=== PATIENT | male | born 1945 | race Caucasian/White ===

== ENCOUNTER 2020-03-11 14:16 | Outpatient (CLI) | payer MEDICARE, SELFPAY ==
--- NOTE | ~2020-03-11 | CT_ITS ---
EXAMINATION: CTA chest DATE: 03/11/2020 14:43 INDICATION: Possible subclavian artery stenosis, abnormal ASHANTI TECHNIQUE: Computed tomographic angiography (CTA) of the chest was performed with 100 mL Omnipque-350 intravenous contrast. Maximum intensity projection 3D-reconstructions of the aorta and other arterie s were constructed by the technologist on a separate workstation. The dose-length product (DLP) was 6 52.80 mGy-cm. Automated exposure control and iterative reconstruction technique were employed. COMPARISON: 06/08/2018 FINDINGS: There is severe stenosis with near occlusion of the left subclavian artery involving a 12 m m length segment 15 mm from its origin. The left vertebral artery arises directly from aortic arch. T he right subclavian artery, brachiocephalic trunk, and internal carotid arteries appear normal. Calci fied coronary artery atherosclerosis is noted. There is severe emphysema. Scattered areas of atelecta sis are again noted. Calcified pulmonary nodules and calcified mediastinal lymph nodes are consistent with old granulomatous disease. There is no pleural effusion or pneumothorax. No pathologically enla rged thoracic lymph nodes are identified. The heart size is normal. Healed right-sided rib fractures are noted. Cysts of the liver measure up to 8 mm. Punctate calcifications of the liver and spleen are consistent with old granulomatous disease. IMPRESSION: 1. 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 2. Severe emphysema. Reviewed, dictated and finalized at location A. PATIONAL HEALTH NURSE SUPERVISOR IMPRESSION: 1. Severe stenosis involving a short segment of the proximal left subclavian ar elijah. 2. Severe emphysema.
== END 2020-03-11 14:17 | disposition home or self-care (01) ==
LOC: ANHIMG 14:21
PROVIDERS: PCP Internal Medicine; Visit Provider Internal Medicine
DX: R68.89 Other general symptoms and signs (principal); J43.9 Emphysema, unspecified
CPT/HCPCS: 71275; Q9967

== ENCOUNTER 2020-07-17 17:53 | Inpatient (IN) | payer MEDICARE, SELFPAY ==
[2020-07-17] VITALS (30 sets, daily range): BP systolic 120–165; BP diastolic 68–105; PULSE 76–114; RESP 17–30; TEMP 37–37.1; O2SAT 90–94
--- NOTE | ~2020-07-17 | XR_ITS ---
XR chest 2V 07/19/2020 08:15 Indication: Follow-up pneumonia Procedure: AP and lateral views of the chest Comparison: Comparison to multiple prior studies sequentially, with oldest reviewed study dated 05/06. Findings: Bibasilar infiltrates. Heart size normal. There are healed right rib fractures. The lungs a re hyperinflated which is consistent with, but not diagnostic of chronic obstructive pulmonary diseas e. No pneumothorax. Impression: 1: Significant improvement of bilateral airspace disease with persistent bibasilar infiltrates which may represent resolving edema and/or atelectasis. Reviewed, dictated and finalized at location A. Impression: 1: Significant improvement of bilateral airspace disease with persistent bibasi lar infiltrates which may represent resolving edema and/or atelectasis.
--- NOTE | ~2020-07-17 | XR_ITS ---
EXAMINATION: XR chest 1V portable DATE: 07/17/2020 18:43 INDICATION: Shortness of breath. TECHNIQUE: A single frontal view of the chest was obtained on 2 radiographs. COMPARISON: Chest single view 06/07/2018, chest CT 03/11/2020 FINDINGS: There are airspace opacities in the lower lung zones, right worse than left. A calcified le ft lung nodule and calcified paraesophageal lymph node are consistent with old granulomatous disease. No pleural effusion or pneumothorax. The heart size is normal. There are multiple old healed right r ib fractures. IMPRESSION: 1. Airspace opacities in the lower lung zones, right worse than left, consistent with atelectasis beth lorene pneumonia. Reviewed, dictated and finalized at location A. IMPRESSION: 1. Airspace opacities in the lower lung zones, right worse than left, consisten t with atelectasis versus pneumonia.
--- NOTE | ~2020-07-17 | CT_ITS ---
EXAMINATION: CTA chest PE protocol DATE: 07/17/2020 20:24 INDICATION: Shortness of breath and cough. TECHNIQUE: Computed tomography angiography (CTA) of the chest was performed with 100 mL Omnipaque-350 intravenous contrast timed to evaluate the pulmonary arteries. Coronal maximum intensity projection 3D-reconstructions were created by the technologist. Automated exposure control and iterative reconst ruction technique were employed. The dose-length product was 566.87 mGy-cm. COMPARISON: Chest CT 03/11/2020 FINDINGS: There is scarring at the lung apices. There is moderate emphysema. There are patchy airspac e and groundglass opacities in right lower lobe, consistent with pneumonia. There is mild atelectasis in right middle lobe and left lower lobe. A calcified left lower lobe nodule and calcified mediastin al lymph nodes are consistent with old granulomatous disease. No pleural effusion. There is severe st enosis of proximal left subclavian artery. Because the left vertebral artery arises from aortic arch, this would not cause subclavian steal. The heart size is normal. No pericardial effusion. There are coronary artery calcifications. There is no pulmonary embolus. Calcifications in the liver and spleen are consistent with old granulomatous disease. There are cysts in the liver measuring up to 11 mm. T here is mild thoracic spondylosis. IMPRESSION: 1. No pulmonary embolus. 2. Right lower lobe pneumonia. 3. Moderate emphysema. 4. Severe stenosis of proximal left subclavian artery. Reviewed, dictated and finalized at location A.
--- NOTE | ~2020-07-17 | XR_ITS ---
XR chest 2V DATE: 07/20/2020 13:43 INDICATION: Recent pneumonia. Congestive heart failure. Smoker. COPD. TECHNIQUE: PA and lateral views COMPARISON: 07/19/2020 AP and lateral chest 07/17/2020 CT pulmonary scan 07/17/2020 portable AP chest FINDINGS: Minimal atelectasis or scarring at the lung bases. The lungs are otherwise clear. No pleura l effusion or pulmonary vascular congestion or pneumothorax. Heart size is within normal range. Is aortic calcification and unfolding. No hilar or mediastinal enl argement. Bilateral apical scarring. Multiple healed old right rib fracture deformities. IMPRESSION: Minimal atelectasis or scarring at the lung bases Reviewed, dictated and finalized at location A.
--- NOTE | 2020-07-17 17:56 | ECG_ITS ---
Measurements Intervals [place] Rate: 113 P: 88 MN: 174 QRS: 32 QRSD: 97 T: 76 QT: 314 QTc: 432 Interpretive Statements SINUS TACHYCARDIA VENTRICULAR PREMATURE COMPLEXES ABNORMAL ECG Electronically Signed On 07-17-2020 20:16:13 CDT by Walter Dexter D.O.
[2020-07-17 18:28] LABS: Alveolar/Arterial O2 Gradient 102.1 mmHg; Base Excess ABG 1.7 mEq/l (+/-2.0); Device NASAL CANNULA; Fractional Inspired Oxygen 28 %; HCO3 ABG 25.1 mEq/l (22.0-26.0); Modified Allen's Test Pass; Oxygen Content ABG 18.7 %vol (16.0-22.0); Oxygen Saturation ABG 90.6 % (95.0-100.0); Oxyhemoglobin 88.5 % THb (90.0-100.0); PCO2 ABG 35.9 mmHg (35.0-45.0); PO2 ABG 55.2 mmHg (80.0-100.0); PO2 FiO2 Ratio Arterial Blood 1.97 %; Site Drawn RIGHT RADIAL; Total Hemoglobin 15.1 g/dL (12.0-18.0); pH ABG 7.463 (7.350-7.450)
[2020-07-17 18:30] LABS: Basophils Percent Auto 0.2 % (0.2-1.2); Eosinophils Absolute Auto 0.1 K/mm3 (0-0.3); Eosinophils Percent Auto 0.6 % (0-4.4); Hematocrit 48.5 % (42.0-52.0); Hemoglobin 15.3 g/dL (14.0-18.0); Immature Granulocyte Absolute 0.09 K/mm3 (0.00-0.031); Immature Granulocyte Percent A 0.5 % (0-0.5); Lymphocytes Absolute Auto 1.16 K/mm3 (0.9-3.2); Lymphocytes Percent Auto 6.3 % (18.3-44.2); Mean Corpuscular HGB Conc 31.5 g/dl (32-36); Mean Corpuscular Hemoglobin 21.3 pg (26-34); Mean Corpuscular Volume 67.6 fl (80-100); Monocytes Absolute Auto 1.3 K/mm3 (0.1-0.6); Monocytes Percent Auto 6.8 % (2.6-8.5); Neutrophils Absolute Auto 15.8 K/mm3 (1.3-6.7); Neutrophils Percent Auto 85.6 % (45.5-73.1); Platelet Count Result 264 k/mm3 (150-375); Red Blood Count 7.17 M/mm3 (4.6-6.20); Red Cell Distribution Width 18.4 % (11.5-14.5); White Blood Count 18.5 K/mm3 (4.5-10.0)
--- NOTE | 2020-07-17 18:30 | PC.NURSE ---
Called [facility], asked to add on lactic to bermudez top just sent down [id number]
[2020-07-17 18:40] LABS: Prothrombin Time 13.3 Seconds (11.1-14.7)
[2020-07-17] MEDS: methylPREDNISolone SOD SUCC 125 MG VIAL IV PUSH (18:40)
[2020-07-17 18:41] LABS: Lactic Acid Reflex 1.9 mmol/L (0.7-2.1)
[2020-07-17 18:41] LABS: Partial Thromboplastin Time 27.8 SECONDS (22.3-36.8)
[2020-07-17 18:42] LABS: Alanine Aminotransferase 13 U/L (4-50); Albumin Level 4.3 g/dL (3.5-5.1); Alkaline Phosphatase 78 U/L (38-126); Anion Gap 8 mmol/L (8-16); Aspartate Amino Transferase 25 U/L (17-59); Bilirubin,Total 0.4 mg/dL (0.2-1.3); Blood Urea Nitrogen 22 mg/dL (9-20); Calcium 9.7 mg/dL (8.4-10.2); Carbon Dioxide 29 mmol/L (22-30); Chloride 101 mmol/L (98-107); Estimated CRCL calculation 58 ml/min; Estimated Glomerular Filt Rate > 60; Glucose 96 mg/dL (75-110); Potassium 4.2 mmol/L (3.4-5.0); Sodium 138 mmol/L (137-145)
[2020-07-17] MEDS: ALBUTEROL SULFATE NEB 2.5 MG/0.5 ML INH 5 MG INHALATION (18:42)
[2020-07-17] MEDS: IPRATROPIUM BR 0.02% INH SOLN 0.5 MG/2.5 ML VIAL INHALATION (18:42)
[2020-07-17 18:53] LABS: NT Pro B Type Natriuretic Pept 221 pg/mL (5-100); Troponin I < 0.012 ng/mL (0.000-0.034)
[2020-07-17 19:18] LABS: Add Urine Microscopic? YES; Appearance Urine Clear (Clear); Bilirubin Urine Negative (Negative); Blood Urine 1+ (Negative); Color Urine Yellow (Yellow); Glucose Urine UA Negative (Negative); Ketones Urine Negative (Negative); Leukocyte Esterase Ur Negative LEU/UL (Negative); Mucus Urine Rare /lpf; Nitrate Urine Negative (Negative); Protein Urine Negative (Negative); Specific Grav Ur 1.017 (1.001-1.035); Urobilinogen Urine Negative mg/dL (<2.0); WBC Urine 0-3 /hpf
--- NOTE | 2020-07-17 19:23 | ED.GENADULT ---
HPI - General Adult General Chief complaint: Shortness of Breath/Dyspnea Stated complaint: SOB Time Seen by Provider: 07/17/20 18:23 Source: patient and family Mode of arrival: ambulatory Limitations: no limitations History of Present Illness HPI narrative: Patient is a 75-year-old male who presents per EMS with dyspnea that began today patient notes that he has a history of COPD which has worsened today he has a cough productive of phlegm. Patient denies any chest pain or new URI symptoms. Patient is followed by Dr. Correia. Patient was recently outside in cold moist weather and thought that this may have been exacerbating his COPD. Patient smokes 5 cigarettes/day. Patient has been using his COPD medications with minimal improvement. Patient wears 2 L of nasal cannula as needed and notes that he has been needing to wear his nasal cannula oxygen Related Data Home Medications Medication Instructions Recorded Confirmed bimatoprost 0.01 % eye drops 1 drop EACH EYE DAILY 01/28/19 03/16/20 dorzolamide 2 % eye drops 1 drop EACH EYE BID ml 01/28/19 03/16/20 aspirin 81 mg tablet,delayed 162 mg PO DAILY tablet 05/27/19 03/16/20 release budesonide-formoterol [Symbicort] 2 puff INHALATION Q12H 07/17/20 Allergies Allergy/AdvReac Type Severity Reaction Status Date / Time No Known Allergies Allergy Verified 07/17/20 18:09 Review of Systems Review of Systems: All systems reviewed & are unremarkable except as noted in HPI and below PMFSH Past Medical History Medical History Abnormal ankle brachial index (ASHANTI) Benign essential hypertension BMI 27.0-27.9,adult BMI 28.0-28.9,adult BPH (benign prostatic hyperplasia) Bruit CAD (coronary artery disease) Constipation COPD (chronic obstructive pulmonary disease) Encounter for Medicare annual wellness exam Encounter for routine adult health examination without abnormal findings Glaucoma Hearing loss Hx of colonic polyps Hx pulmonary embolism Mixed hyperlipidemia 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) Father Family history of congestive heart failure Patient's father is Mother Acute myocardial infarction Family history of cardiac disorder Family history of diabetes mellitus in first degree relative Family history of heart disease in male family member before age 55 Diabetes mellitus Family history of cardiovascular disease Sibling Family history of diabetes mellitus in first degree relative Other Asthma Family history of allergic disorder Family history of coronary artery disease Social History Social History Smoking packs per day: 0.25 Smoking cigarettes per day: 5.0 Smoking status: Light tobacco smoker Tobacco type: cigarettes Alcohol intake: never Substance use: never Substance use type: does not use Gender identity (if verbalized by the patient): Male Exam Narrative: Exam Narrative: GENERAL: Chronically ill-appearing, well-nourished, and in no acute distress. HEAD: Normocephalic, atraumatic. EYES: PERRLA and EOMI. ENT: Nares clear, no rhinorrhea or epistaxis. Mucous membranes moist. NECK: Supple. No adenopathy or masses. No carotid bruits or JVD CHEST: Diminished on auscultation. No respiratory distress. Coarse breath sounds throughout the lung [place] HEART: Regular rate and rhythm. No murmur heard. Normal peripheral pulses. ABDOMEN: Soft, nontender, nondistended EXTREMITIES: Normal range of motion. No edema. SKIN: Warm, dry, no rash. NEURO: No focal deficits. Alert and oriented x3. Cranial nerves II through XII grossly intact PSYCH: Normal mood and affect. Course Course Emergency Course: Patient presented with increasing dyspnea that began acutely today found to have pneumonia will
[2020-07-17 19:26] LABS: D Dimer 0.64 ug/mL (<0.48)
--- NOTE | 2020-07-17 23:58 | ADMGEN ---
This patient, Elkin Zhu, was admitted to Medical Room [facility] at 2340. Patient/family oriented to hospital policies and general routines including ID bracelet, bed and alarms, visiting hours, pain management, procedures, bathroom and other care routines, personal items, smoking policy, room service/diet, and visiting hours. Information on how to activate the Rapid Response Team has been discussed. Patient/Family are encouraged to report perceived risks to care and to ask questions if they do not understand what they are told or what they should do.
[2020-07-18] VITALS (18 sets, daily range): BP systolic 116–135; BP diastolic 57–65; PULSE 59–88; RESP 16–20; TEMP 36.1–36.4; O2SAT 92–96; BMI 27.8
[2020-07-18] MEDS: FAMOTIDINE 20 MG/2 ML VIAL IV PUSH ×3 (00:32→20:58)
--- NOTE | 2020-07-18 00:46 | PM.IMHP ---
H&P: HPI History of Present Illness Date/Time: 07/18/20 00:46 Chief Complaint: sob Narrative: Patient is a 75-year-old male who presets to the ED with feelin chill this am. he called his regular doctor and he advisd him to come to the ED> he also rpeorts having cough with productive phlegm, no chest pain but somewhat increased shortness of breath. he repots he has hx of COPD and falred up quite often. he continues to smoke and uses oxyge at home, whenever he feels he needs them. he reports no leg swlling. ED evaluation noted him to have right lower lobe pneumonia. no PE though D dimer eleated. he is admitted for further evaluation and managmeent. Review of Systems Review of Systems: Narrative: - CONSTITUTIONAL: Denies weight loss, fever and reorts chills. - HEENT: Denies changes in vision and hearing - RESPIRATORY:reports SOB and cough. - CV: Denies palpitations and CP. - GI: Denies abdominal pain, nausea, vomiting and diarrhea. - : Denies dysuria and urinary frequency. - MSK: Denies myalgia and joint pain. - SKIN: Denies rash and pruritus. - NEUROLOGICAL: Denies headache and syncope. - PSYCHIATRIC: Denies recent changes in mood. Denies anxiety and depression. 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 Stenosis of left subclavian artery Thalassemia Family History Family History Father Family history of congestive heart failure Patient's father is Mother Acute myocardial infarction Family history of cardiac disorder Family history of diabetes mellitus in first degree relative Family history of heart disease in male family member before age 55 Diabetes mellitus Family history of cardiovascular disease Sibling Family history of diabetes mellitus in first degree relative Other Asthma Family history of allergic disorder Family history of coronary artery disease Social History Social History Smoking packs per day: 0.25 Smoking cigarettes per day: 5.0 Years smoked: 61 Smoking pack-years: 15.25 Smoking status: Current every day smoker Tobacco type: cigarettes Alcohol intake: former Substance use: never Substance use type: does not use Gender identity (if verbalized by the patient): Male Spiritual care concerns: No Meds Home Medications and Allergies Home Medications Medication Instructions Recorded Confirmed Type bimatoprost 0.01 % eye drops 1 drop EACH EYE DAILY 01/28/19 07/17/20 History dorzolamide 2 % eye drops 1 drop EACH EYE BID ml 01/28/19 07/17/20 History aspirin 81 mg tablet,delayed 81 mg PO Q12H tablet 05/27/19 07/17/20 History release atorvastatin 40 mg tablet 40 mg PO DAILY #90 tablet 11/04/19 07/17/20 Rx mometasone-formoterol [Dulera] 2 puff INHALATION Q12H 07/17/20 07/17/20 History polyvinyl alcohol [20 1 drp EACH EYE Q12H 07/17/20 07/17/20 History Artificial Tears] Allergies Allergy/AdvReac Type Severity Reaction Status Date / Time No Known Allergies Allergy Verified 07/17/20 18:09 Vital Signs Vital Signs - 24 hr 07/17/20 17:57 07/17/20 18:14 07/17/20 18:15 Temperature 98.7 F 98.6 F Pulse Rate 114 H 103 H 102 H Respiratory Rate 22 H 24 H Blood Pressure 165/90 H 161/79 H Pulse Oximetry 94 93 07/17/20 1
[2020-07-18] MEDS: LATANOPROST 0.005% OP SOLN 2.5 ML BTL 1 DROP EACH EYE ×2 (02:52→20:59)
[2020-07-18] MEDS: ALBUTEROL SULFATE NEB 2.5 MG/0.5 ML INH 5 MG INHALATION ×4 (04:31→20:04)
[2020-07-18] MEDS: IPRATROPIUM BR 0.02% INH SOLN 0.5 MG/2.5 ML VIAL INHALATION ×4 (04:31→20:04)
[2020-07-18 05:44] LABS: Anion Gap 7 mmol/L (8-16); Blood Urea Nitrogen 20 mg/dL (9-20); Calcium 9.2 mg/dL (8.4-10.2); Carbon Dioxide 28 mmol/L (22-30); Chloride 102 mmol/L (98-107); Estimated CRCL calculation 52 ml/min; Estimated Glomerular Filt Rate > 60; Glucose 199 mg/dL (75-110); Potassium 4.1 mmol/L (3.4-5.0); Sodium 137 mmol/L (137-145)
[2020-07-18 05:57] LABS: Basophils Percent Auto 0.2 % (0.2-1.2); Hematocrit 46.6 % (42.0-52.0); Hemoglobin 14.6 g/dL (14.0-18.0); Immature Granulocyte Absolute 0.11 K/mm3 (0.00-0.031); Immature Granulocyte Percent A 0.5 % (0-0.5); Immature Platelet Fraction Pct 6.8 % (0.9-11.2); Lymphocytes Absolute Auto 0.91 K/mm3 (0.9-3.2); Lymphocytes Percent Auto 4.2 % (18.3-44.2); Mean Corpuscular HGB Conc 31.3 g/dl (32-36); Mean Corpuscular Hemoglobin 21.3 pg (26-34); Monocytes Absolute Auto 0.5 K/mm3 (0.1-0.6); Monocytes Percent Auto 2.2 % (2.6-8.5); Neutrophils Absolute Auto 20.2 K/mm3 (1.3-6.7); Neutrophils Percent Auto 92.9 % (45.5-73.1); Platelet Count Result 242 k/mm3 (150-375); Red Blood Count 6.85 M/mm3 (4.6-6.20); Red Cell Distribution Width 17.6 % (11.5-14.5); White Blood Count 21.7 K/mm3 (4.5-10.0)
[2020-07-18] MEDS: predniSONE 20 MG TABLET 40 MG PO (08:29)
[2020-07-18] MEDS: ASPIRIN 81 MG ENTERIC TABLET PO ×2 (08:29→20:58)
[2020-07-18] MEDS: ATORVASTATIN 40 MG TABLET PO (08:30)
[2020-07-18] MEDS: DORZOLAMIDE HCL 2% OPHTH DROPS 1 DROP EACH EYE ×2 (08:30→17:18)
--- NOTE | 2020-07-18 10:20 | PM.IMPN ---
Progress Note: A&P Assessment and Plan (1) Pneumonia: Code(s): J18.9 - Pneumonia, unspecified organism Status: Acute Assessment and Plan: Will continue with IV antibiotics. Repeat chest x-ray in the morning. Check WBC in the morning. Check cultures in the morning. (2) Hypoxemia: Code(s): R09.02 - Hypoxemia Status: Acute Assessment and Plan: Monitor oxygen closely. Continue oxygen supplementation. (3) Stenosis of left subclavian artery: Code(s): I77.1 - Stricture of artery Status: Acute Assessment and Plan: Being followed up as an outpatient. (4) CAD (coronary artery disease): Qualifiers: Coronary Disease-Associated Artery/Lesion type: unspecified vessel or lesion type [place] vs. transplanted heart: [place] heart Associated angina: angina presence unspecified Qualified Code(s): I25.10 - Atherosclerotic heart disease of [place] coronary artery without angina pectoris Code(s): I25.10 - Atherosclerotic heart disease of [place] coronary artery without angina pectoris Status: Acute Assessment and Plan: Stable on meds. (5) Mixed hyperlipidemia: Code(s): E78.2 - Mixed hyperlipidemia Status: Acute Assessment and Plan: Stable on meds. Additional Plan # Right lower lobe pneumonia: treat as CAP with azithromycin and ceftraixone. pancutlrue. will get sputum culture. mycolplasma, legionnella, pneumococcal ag will be checked. # CHronic respiratory failure on home oxygen. # COPD exacebaation: not actively wheezing afer he recived slumedrol in the ED will place on prednisone 40 mg daily for now. # Left subclavian artery stenosis: asymptomatic. fu as op basis. look slike he is seeing vasular surgery for this. on aspirin 81 mg po daily. # leukocytosis: pancutlure. antiboics. monitor. # DVT proph: lovenox # hyperlipidmeia; atovastatin # Current smoker # Hx of CAD: on aspirin, statin. # Full code Subjective Date/time seen: 07/18/20 10:20 Interval history: Patient was seen today during the morning rounds. Patient is feeling slightly better. Decreased shortness of breath. No chest pain. No abdominal pain. Fever is better. Mood stable. Review of Systems Review of Systems: All systems reviewed & are unremarkable except as noted in HPI and below Exam Narrative: Exam Narrative: GENERAL: well-nourished, and in no acute distress. HEAD: Normocephalic, atraumatic. EYES: PERRLA and EOMI. ENT: Nares clear, no rhinorrhea or epistaxis. Mucous membranes moist. NECK: Supple. No adenopathy or masses. No carotid bruits or JVD CHEST: Diminished on auscultation. No respiratory distress. right lug field with some crackles noted HEART: Regular rate and rhythm. No murmur heard. Normal peripheral pulses. ABDOMEN: Soft, nontender, nondistended EXTREMITIES: Normal range of motion. No edema. SKIN: Warm, dry, no rash. NEURO: No focal deficits. Alert and oriented x3. Cranial nerves II through XII grossly intact PSYCH: Normal mood and affect. Objective Data Vital Signs Vital Signs: Vital Signs - 24 hr 07/17/20 17:57 07/17/20 18:14 07/17/20 18:15 Temperature 37.1 C 37.0 C Pulse Rate 114 H 103 H 102 H Respiratory Rate 22 H 24 H Blood Pressure 165/90 H 161/79 H Pulse Oximetry 94 93 07/17/20 18:42 07/17/20 18:45 07/17/20 18:50 Temperature Pulse Rate 105 H 103 H 101 H Respiratory Rate 22 H 17 20 Blood Pressure Pulse Oximetry 07/17/20 19:00 07/17/20 19:40 07/17/20 19:45 Temperature Pulse Rate 109 H 100 104 H Respiratory Rate 24 H 29 H 22 H Blood Pressure Pulse Oximetry 91 07/17/20 19:47 07/17/20 20:00 07/17/20 20:27 Temperature Pulse Rate 98 98 95 Respiratory Rate 23 H 21 H 28 H Blood Pressure 149/76 H Pulse Oximetry 90 90 92 07/17/20 20:30 07/17/20 20:32 07/17/20 20:36 Temperature Pulse Rate 91 94 95 Respiratory Rate 24 H 29 H 20 Blood Pressure 147/73 H 147/73 H Pulse Oxime
[2020-07-18] MEDS: HEPARIN SODIUM 5,000 UNITS/ML VIAL 5000 UNITS SUB-Q (20:58)
[2020-07-19] VITALS (15 sets, daily range): BP systolic 123–134; BP diastolic 53–65; PULSE 62–81; RESP 16–20; TEMP 36–36.7; O2SAT 92–97
[2020-07-19] MEDS: IPRATROPIUM BR 0.02% INH SOLN 0.5 MG/2.5 ML VIAL INHALATION ×4 (01:32→19:46)
[2020-07-19] MEDS: ALBUTEROL SULFATE NEB 2.5 MG/0.5 ML INH 5 MG INHALATION ×4 (01:32→19:46)
[2020-07-19 05:48] LABS: Hematocrit 39.1 % (42.0-52.0); Hemoglobin 12.5 g/dL (14.0-18.0); Immature Platelet Fraction Pct 7.8 % (0.9-11.2); Mean Corpuscular Hemoglobin 21.4 pg (26-34); Mean Corpuscular Volume 67.1 fl (80-100); Mean Platelet Volume 11.5 fl (7.4-10.4); Platelet Count Result 226 k/mm3 (150-375); Red Blood Count 5.83 M/mm3 (4.6-6.20)
[2020-07-19 06:16] LABS: Alanine Aminotransferase 10 U/L (4-50); Albumin Level 3.1 g/dL (3.5-5.1); Alkaline Phosphatase 50 U/L (38-126); Anion Gap 5 mmol/L (8-16); Aspartate Amino Transferase 20 U/L (17-59); Bilirubin,Total 0.2 mg/dL (0.2-1.3); Blood Urea Nitrogen 25 mg/dL (9-20); Calcium 8.8 mg/dL (8.4-10.2); Carbon Dioxide 27 mmol/L (22-30); Chloride 103 mmol/L (98-107); Estimated CRCL calculation 62 ml/min; Estimated Glomerular Filt Rate > 60; Glucose 127 mg/dL (75-110); Sodium 135 mmol/L (137-145)
[2020-07-19] MEDS: DORZOLAMIDE HCL 2% OPHTH DROPS 1 DROP EACH EYE ×2 (07:59→17:20)
[2020-07-19] MEDS: ATORVASTATIN 40 MG TABLET PO (08:00)
[2020-07-19] MEDS: FAMOTIDINE 20 MG/2 ML VIAL IV PUSH ×2 (08:00→20:38)
[2020-07-19] MEDS: predniSONE 20 MG TABLET 40 MG PO (08:00)
[2020-07-19] MEDS: ASPIRIN 81 MG ENTERIC TABLET PO ×2 (08:00→20:38)
[2020-07-19] MEDS: HEPARIN SODIUM 5,000 UNITS/ML VIAL 5000 UNITS SUB-Q ×2 (08:04→20:38)
--- NOTE | 2020-07-19 08:06 | PM.IMPN ---
Progress Note: A&P Assessment and Plan (1) Pneumonia: Code(s): J18.9 - Pneumonia, unspecified organism Status: Acute Assessment and Plan: Will continue with IV antibiotics. Repeat chest x-ray in the morning. Check WBC in the morning. Check cultures in the morning. WBC 20.1 today. (2) Hypoxemia: Code(s): R09.02 - Hypoxemia Status: Acute Assessment and Plan: Monitor oxygen closely. Continue oxygen supplementation. (3) Stenosis of left subclavian artery: Code(s): I77.1 - Stricture of artery Status: Acute Assessment and Plan: Being followed up as an outpatient. (4) CAD (coronary artery disease): Qualifiers: Coronary Disease-Associated Artery/Lesion type: unspecified vessel or lesion type [place] vs. transplanted heart: [place] heart Associated angina: angina presence unspecified Qualified Code(s): I25.10 - Atherosclerotic heart disease of [place] coronary artery without angina pectoris Code(s): I25.10 - Atherosclerotic heart disease of [place] coronary artery without angina pectoris Status: Acute Assessment and Plan: Stable on meds. (5) Mixed hyperlipidemia: Code(s): E78.2 - Mixed hyperlipidemia Status: Acute Assessment and Plan: Stable on meds. Additional Plan # Right lower lobe pneumonia: treat as CAP with azithromycin and ceftraixone. pancutlrue. will get sputum culture. mycolplasma, legionnella, pneumococcal ag will be checked. # CHronic respiratory failure on home oxygen. # COPD exacebaation: not actively wheezing afer he recived slumedrol in the ED will place on prednisone 40 mg daily for now. # Left subclavian artery stenosis: asymptomatic. fu as op basis. look slike he is seeing vasular surgery for this. on aspirin 81 mg po daily. # leukocytosis: pancutlure. antiboics. monitor. # DVT proph: lovenox # hyperlipidmeia; atovastatin # Current smoker # Hx of CAD: on aspirin, statin. # Full code Will continue current plan of care and treatment. WBC is decreasing. Patient is afebrile now. Repeat WBC and chest x-ray in the morning of stays okay will discharge home tomorrow morning. Subjective Date/time seen: 07/19/20 08:06 Interval history: Patient was seen today during the morning rounds. Patient is feeling slightly better. Decreased shortness of breath. No chest pain. No abdominal pain. Fever is better. Mood stable. No new problems overnight. Patient slept well last night. Review of Systems Review of Systems: All systems reviewed & are unremarkable except as noted in HPI and below Exam Narrative: Exam Narrative: GENERAL: well-nourished, and in no acute distress. HEAD: Normocephalic, atraumatic. EYES: PERRLA and EOMI. ENT: Nares clear, no rhinorrhea or epistaxis. Mucous membranes moist. NECK: Supple. No adenopathy or masses. No carotid bruits or JVD CHEST: Diminished on auscultation. No respiratory distress. right lug field with some crackles noted HEART: Regular rate and rhythm. No murmur heard. Normal peripheral pulses. ABDOMEN: Soft, nontender, nondistended EXTREMITIES: Normal range of motion. No edema. SKIN: Warm, dry, no rash. NEURO: No focal deficits. Alert and oriented x3. Cranial nerves II through XII grossly intact PSYCH: Normal mood and affect. Objective Data Vital Signs Vital Signs: Vital Signs - 24 hr 07/18/20 09:30 07/18/20 09:40 07/18/20 10:00 Temperature 36.1 C L Pulse Rate 68 68 59 L Respiratory Rate 20 20 20 Blood Pressure 116/64 Pulse Oximetry 94 07/18/20 11:49 07/18/20 14:00 07/18/20 15:40 Temperature 36.1 C L Pulse Rate 60 75 66 Respiratory Rate 20 18 20 Blood Pressure 135/61 Pulse Oximetry 94 94 07/18/20 15:49 07/18/20 18:00 07/18/20 19:36 Temperature 36.2 C L Pulse Rate 66 88 Respiratory Rate 20 16 Blood Pressure 133/61 Pulse Oximetry 93 93 07/18/20 20:00 07/18/20 20:05 07/18/20 20:20 Temperature 36.4 C L Pulse Rate 70
--- NOTE | 2020-07-19 17:28 | PC.NURSE ---
Patients took patients belongings home, including pants and home medications.
[2020-07-19] MEDS: LATANOPROST 0.005% OP SOLN 2.5 ML BTL 1 DROP EACH EYE (20:38)
[2020-07-20] VITALS (16 sets, daily range): BP systolic 125–156; BP diastolic 54–66; PULSE 58–73; RESP 14–18; TEMP 35.9–36.4; O2SAT 93–100
[2020-07-20] MEDS: ALBUTEROL SULFATE NEB 2.5 MG/0.5 ML INH 5 MG INHALATION ×4 (01:45→19:17)
[2020-07-20] MEDS: IPRATROPIUM BR 0.02% INH SOLN 0.5 MG/2.5 ML VIAL INHALATION ×4 (01:46→19:18)
[2020-07-20 05:24] LABS: Hematocrit 37.9 % (42.0-52.0); Hemoglobin 11.7 g/dL (14.0-18.0); Mean Corpuscular HGB Conc 30.9 g/dl (32-36); Mean Corpuscular Hemoglobin 20.9 pg (26-34); Mean Corpuscular Volume 67.6 fl (80-100); Mean Platelet Volume 10.9 fl (7.4-10.4); Platelet Count Result 219 k/mm3 (150-375); Red Blood Count 5.61 M/mm3 (4.6-6.20); Red Cell Distribution Width 15.9 % (11.5-14.5); White Blood Count 15.6 K/mm3 (4.5-10.0)
[2020-07-20 05:39] LABS: Estimated CRCL calculation 70 ml/min; Estimated Glomerular Filt Rate > 60
[2020-07-20] MEDS: ASPIRIN 81 MG ENTERIC TABLET PO ×2 (08:58→20:57)
[2020-07-20] MEDS: FAMOTIDINE 20 MG/2 ML VIAL IV PUSH ×2 (08:58→20:57)
[2020-07-20] MEDS: ATORVASTATIN 40 MG TABLET PO (08:58)
[2020-07-20] MEDS: predniSONE 20 MG TABLET 40 MG PO (08:58)
[2020-07-20] MEDS: DORZOLAMIDE HCL 2% OPHTH DROPS 1 DROP EACH EYE ×2 (08:58→17:30)
[2020-07-20] MEDS: HEPARIN SODIUM 5,000 UNITS/ML VIAL 5000 UNITS SUB-Q ×2 (09:19→20:58)
--- NOTE | 2020-07-20 12:40 | PM.IMPN ---
Progress Note: A&P Assessment and Plan (1) Pneumonia: Qualifiers: Pneumonia type: due to Haemophilus influenzae Laterality: right Lung location: lower lobe of lung Qualified Code(s): J14 - Pneumonia due to Hemophilus influenzae Code(s): J18.9 - Pneumonia, unspecified organism Status: Acute Assessment and Plan: CTA chest with right lower lobe pneumonia. Clinically patient is continuing to improve. Will continue IV ceftriaxone and azithromycin with plan to transition to oral antibiotic at discharge. Unable to discharge today as now 1 blood culture preliminarily positive. Hopeful discharge in next few days. Also on IV vancomycin due to positive blood culture. Sputum culture positive for Haemophilus influenzae. (2) COPD exacerbation: Code(s): J44.1 - Chronic obstructive pulmonary disease with (acute) exacerbation Status: Acute Assessment and Plan: Symptomatically improved. Will continue Symbicort and oral prednisone. Will start to taper prednisone. Remains on home oxygen requirement. Also continue nebulizer treatments. (3) Chronic respiratory failure with hypoxia: Code(s): J96.11 - Chronic respiratory failure with hypoxia Status: Acute Assessment and Plan: Remains on home oxygen requirement of 2 L. Continue respiratory treatments as noted above. (4) Bacteremia: Code(s): R78.81 - Bacteremia Status: Acute Assessment and Plan: First set of blood cultures with 1 of 2 now positive for Gram-positive cocci. IV vancomycin added. Repeat blood cultures have been drawn. Possible this is contaminant but will need to see final results. Adjust treatment as needed. (5) Benign essential hypertension: Code(s): I10 - Essential (primary) hypertension Status: Acute Assessment and Plan: Blood pressure reviewed on 07/20/2020 and stable. Not on medication. Will monitor. (6) Mixed hyperlipidemia: Code(s): E78.2 - Mixed hyperlipidemia Status: Acute Assessment and Plan: Stable. Continue atorvastatin. (7) CAD (coronary artery disease): Qualifiers: Coronary Disease-Associated Artery/Lesion type: unspecified vessel or lesion type [place] vs. transplanted heart: [place] heart Associated angina: angina presence unspecified Qualified Code(s): I25.10 - Atherosclerotic heart disease of [place] coronary artery without angina pectoris Code(s): I25.10 - Atherosclerotic heart disease of [place] coronary artery without angina pectoris Status: Acute Assessment and Plan: No acute issue. Will continue ASA and atorvastatin. (8) Stenosis of left subclavian artery: Code(s): I77.1 - Stricture of artery Status: Acute Assessment and Plan: Severe stenosis of proximal left subclavian artery seen on CTA chest. (9) DVT prophylaxis: Code(s): Z29.9 - Encounter for prophylactic measures, unspecified Status: Acute Assessment and Plan: Heparin subcutaneously. Time Spent With Patient Time with patient: 15 - 25 minutes Subjective Date/time seen: 07/20/20 12:40 Interval history: Date of Service: 07/20/2020. Admitted with pneumonia, COPD exacerbation. Patient on 2 L oxygen at home but uses as needed. Patient states he is feeling better today. No shortness of breath. Cough improving. No chest pain or chest pressure. No headache or dizziness. No abdominal pain, nausea or vomiting. Review of Systems Review of Systems: Narrative: Feeling better. Constitutional: Constitutional: Denies chills and Denies fever(s) Eyes: Eyes: Reports no additional eye complaints ENT: Denies sore throat Cardiovascular: Cardiovascular: Denies chest pain Respiratory: Respiratory: Reports cough (improving) and Denies dyspnea Gastrointestinal: Gastrointestinal: Denies abdominal pain, Denies nausea and Denies vomiting Genitourinary: Genitourinary: Reports no additional male genitourinar
[2020-07-20] MEDS: LATANOPROST 0.005% OP SOLN 2.5 ML BTL 1 DROP EACH EYE (20:58)
[2020-07-21] VITALS (8 sets, daily range): BP systolic 119–150; BP diastolic 64–86; PULSE 53–88; RESP 12–20; TEMP 36.1–36.5; O2SAT 94–97
[2020-07-21] MEDS: IPRATROPIUM BR 0.02% INH SOLN 0.5 MG/2.5 ML VIAL INHALATION ×2 (01:52→09:11)
[2020-07-21] MEDS: ALBUTEROL SULFATE NEB 2.5 MG/0.5 ML INH 5 MG INHALATION ×2 (01:52→09:11)
[2020-07-21 05:46] LABS: Mean Corpuscular HGB Conc 31.7 g/dl (32-36); Mean Corpuscular Hemoglobin 21.3 pg (26-34); Mean Corpuscular Volume 67.3 fl (80-100); Mean Platelet Volume 10.5 fl (7.4-10.4); Platelet Count Result 254 k/mm3 (150-375); Red Blood Count 6.09 M/mm3 (4.6-6.20); Red Cell Distribution Width 17.3 % (11.5-14.5); White Blood Count 12.8 K/mm3 (4.5-10.0)
[2020-07-21 06:08] LABS: Anion Gap 2 mmol/L (8-16); Blood Urea Nitrogen 14 mg/dL (9-20); Calcium 8.8 mg/dL (8.4-10.2); Carbon Dioxide 30 mmol/L (22-30); Chloride 104 mmol/L (98-107); Estimated CRCL calculation 62 ml/min; Estimated Glomerular Filt Rate > 60; Glucose 94 mg/dL (75-110); Potassium 3.7 mmol/L (3.4-5.0); Sodium 136 mmol/L (137-145)
[2020-07-21] MEDS: ASPIRIN 81 MG ENTERIC TABLET PO (08:06)
[2020-07-21] MEDS: FAMOTIDINE 20 MG/2 ML VIAL IV PUSH (08:06)
[2020-07-21] MEDS: DORZOLAMIDE HCL 2% OPHTH DROPS 1 DROP EACH EYE (08:06)
[2020-07-21] MEDS: predniSONE 10 MG TABLET 30 MG PO (08:06)
[2020-07-21] MEDS: ATORVASTATIN 40 MG TABLET PO (08:06)
[2020-07-21] MEDS: HEPARIN SODIUM 5,000 UNITS/ML VIAL 5000 UNITS SUB-Q (08:14)
--- NOTE | 2020-07-21 11:45 | PM.DS ---
DS: Admitting Diagnosis Admitting Diagnosis Admitting Diagnosis: Cough, SOB DS: Discharge Diagnosis Discharge Diagnosis (1) Pneumonia: Qualifiers: Laterality: right Lung location: lower lobe of lung Pneumonia type: due to Haemophilus influenzae Qualified Code(s): J14 - Pneumonia due to Hemophilus influenzae Code(s): J18.9 - Pneumonia, unspecified organism Status: Acute Assessment and Plan: CTA chest with right lower lobe pneumonia. WBC was 18.5K on admission but climbed to 21.7 possibly related to the steroids. He was started on IV ceftriaxone and azithromycin. Sputum culture positive for Haemophilus influenzae. WBC has slowly trended down to 12.8 today. Vancomycin added for the positive BCx. Patient clinically continued to improve as well. No fevers. Patient feels well today. He is up walking in the room. Cough is minimal. No CP or SOB. (2) COPD exacerbation: Code(s): J44.1 - Chronic obstructive pulmonary disease with (acute) exacerbation Status: Acute Assessment and Plan: Symptomatically improved. We continued his Symbicort. Prednisone added but wheezing has resolved. He received a dose of Solu-Medrol in the ED and 4 days of Prednisone subsequently. Given his improvement and that he has active infection, will stop prednisone. (3) Chronic respiratory failure with hypoxia: Code(s): J96.11 - Chronic respiratory failure with hypoxia Status: Acute Assessment and Plan: He remained stable on his home oxygen requirement of 2 L. (4) Bacteremia: Code(s): R78.81 - Bacteremia Status: Acute Assessment and Plan: First set of blood cultures with 1 of 2 positive for Coag Negative staph. IV vancomycin was added when culture returned positive but now felt to be a contaminate. Repeat blood cultures have been drawn and are pending. (5) Benign essential hypertension: Code(s): I10 - Essential (primary) hypertension Status: Acute Assessment and Plan: Blood pressure monitored closely and has remained stable. Not on medication. (6) Mixed hyperlipidemia: Code(s): E78.2 - Mixed hyperlipidemia Status: Acute Assessment and Plan: Stable. LFTs normal. We continued his atorvastatin. (7) CAD (coronary artery disease): Qualifiers: Associated angina: angina presence unspecified Coronary Disease-Associated Artery/Lesion type: unspecified vessel or lesion type [place] vs. transplanted heart: [place] heart Qualified Code(s): I25.10 - Atherosclerotic heart disease of [place] coronary artery without angina pectoris Code(s): I25.10 - Atherosclerotic heart disease of [place] coronary artery without angina pectoris Status: Acute Assessment and Plan: No acute issue. We continued his ASA and atorvastatin. (8) Stenosis of left subclavian artery: Code(s): I77.1 - Stricture of artery Status: Acute Assessment and Plan: Severe stenosis of proximal left subclavian artery seen on CTA chest. This is a known finding and PCP is aware by CTA in February 2020. Defer to PCP for further management. Continue ASA and statin. DS: Summary Hospital Course Reason for hospitalization: 75yo male with chronic respiratory failure here for cough and SOB and found to have PNA. Please see H&P for details. Hospital Course: please see above for details hospital course. Status at Discharge Cognitive/behavioral status at discharge: Stable Time Spent with Patient Time attestation: Total time spent providing and/or coordinating discharge services: 35 minutes Time spent: Greater than 30 minutes Specific discharge activities: Discussed with PCP Exam Narrative: Exam Narrative: AF 97.0 150/64 77 20 94% 2L Gen - NARD lying semi-recumbent in bed Chest - L>R bibasilar inspiratory crackles, nml RR CV - RRR S1/S2 with occasional extra beat Abd - Soft, NT
[2020-07-21 13:04] LABS: Pneumococcal Antigen Urine Not Detected (Not Detected)
[2020-07-21 16:55] LABS: Legionella pneumophila Ag Ur Not Detected (Not Detected)
--- NOTE | 2020-07-23 11:26 | PC.NURSE ---
Urine Legionella and pneumococcal are negative.
--- NOTE | 2020-07-27 15:22 | PC.NURSE ---
Blood cx from 5/10 are negative. BLood cx from 5/7 show Haemophilus infuenza in one bottle and Coag neg staph and Corynebacterium sp; not jeike in other bottle. Dr. Noam eason.
== END 2020-07-21 14:35 | disposition home or self-care (01) | DRG 194 ==
LOC: ANHED 20:49 → ANH2MED 23:29
PROVIDERS: Emergency Medicine Emergency Medical Services; Hospitalist; Internal Medicine; Admitting Provider Internal Medicine; Emergency Provider Emergency Medicine; PCP Internal Medicine; Visit Provider Internal Medicine
DX: J14 Pneumonia due to Hemophilus influenzae (principal); J96.11 Chronic respiratory failure with hypoxia; J44.1 Chronic obstructive pulmonary disease with (acute) exacerbation; R78.81 Bacteremia; F17.210 Nicotine dependence, cigarettes, uncomplicated; I25.10 Atherosclerotic heart disease of native coronary artery without angina pectoris; I77.1 Stricture of artery; I10 Essential (primary) hypertension; E78.2 Mixed hyperlipidemia; Z79.82 Long term (current) use of aspirin; Z79.899 Other long term (current) drug therapy; Z86.711 Personal history of pulmonary embolism
CPT/HCPCS: 36415; 36600; 71045; 71046; 71275; 80048; 80053; 81001; 82565; 82805; 83605; 83880; 84484; 85025; 85027; 85055; 85380; 85610; 85730; 87040; 87070; 87077; 87185; 87186; 87205; 87449; 87581; 87899; 93005; 94640; 96374; 99285; A9270; J0456; J0696; J1644; J2930; J3370; J7512; Q9967

== ENCOUNTER 2020-08-11 10:53 | Outpatient (CLI) | payer MEDICARE, SELFPAY ==
--- NOTE | ~2020-08-11 | XR_ITS ---
EXAMINATION: XR chest 2V DATE: 08/11/2020 11:12 INDICATION: Pneumonia due to Hemophilus influenzae. TECHNIQUE: Frontal and lateral views of the chest were obtained. COMPARISON: Chest 2 views 07/20/2020, chest CT 07/17/2020 FINDINGS: There are mild airspace opacities in right lower lung zone. There is mild scarring at the l duong apices. There is a small right pleural effusion. No pneumothorax. The heart size is normal. Ther e are old healed rib fractures bilaterally. IMPRESSION: 1. Stable mild airspace opacities in right lower lung zone, consistent with atelectasis versus pneumo delvin. 2. Stable small right pleural effusion. Reviewed, dictated and finalized at location B. IMPRESSION: 1. Stable mild airspace opacities in right lower lung zone, consistent with ate lectasis versus pneumonia. 2. Stable small right pleural effusion.
== END 2020-08-11 10:54 | disposition home or self-care (01) ==
PROVIDERS: PCP Internal Medicine; Visit Provider Internal Medicine
DX: J14 Pneumonia due to Hemophilus influenzae (principal); J90 Pleural effusion, not elsewhere classified
CPT/HCPCS: 71046

== ENCOUNTER 2023-03-20 13:27 | Outpatient (CLI) | payer MEDICARE, SELFPAY ==
--- NOTE | ~2023-03-20 | CT_ITS ---
Clinical Indication: Abnormal weight loss CT Scan of the Chest, Abdomen, and Pelvis with Contrast: Technique: Contiguous sections were acquired throughout the chest, abdomen, and pelvis after intraven ous administration of 100 cc of Omnipaque 350. Dose reduction technique was used on this scan by michael ma automated exposure control and iterative reconstruction technique. The dose-length product (DL P) was 724.25 mGy-cm. COMPARISON: 07/17/2020 Findings: There is no evidence of any significant mediastinal, hilar or axillary lymphadenopathy. Small calcifi ed subcarinal lymph nodes are present. The mediastinal soft tissues and vascular structures appear no rmal, aside from atherosclerotic calcifications of the aorta and coronary arteries. There is no evidence of pleural or pericardial effusion. There is advanced emphysema with biapical and right basilar scarring. No suspicious pulmonary nodule seen. Calcified left basilar granuloma present. Small hepatic cysts are present. Calcified splenic granulomas are present. The spleen, pancreas, gall bladder, adrenals and kidneys are within normal limits. There are atherosclerotic calcifications of t he aorta. No lymphadenopathy. No bowel obstruction or bowel wall thickening. Large stool burden suggests constipation. Urinary bladder is unremarkable. There is probable indentation of the prostate gland through the blad angela base, versus possibly a posterior bladder wall mass (axial image 230). No ascites. Impression: Advanced emphysema with biapical bibasilar scarring. Constipation. Probable indentation of the prostate gland through the bladder base, less likely posterior urinary bl adder intraluminal mass. Correlate clinically. Reviewed, dictated and finalized at [facility]. [employer] Impression: Advanced emphysema with biapical bibasilar scarring. Constipation. Probable indentation of the prostate gland through the bladder base, less likel y posterior urinary bladder intraluminal mass. Correlate clinically.
[2023-03-20 13:52] LABS: Estimated Glomerular Filt Rate > 60
== END 2023-03-20 13:28 | disposition home or self-care (01) ==
PROVIDERS: PCP Internal Medicine; Visit Provider Internal Medicine
DX: R63.4 Abnormal weight loss (principal); J43.9 Emphysema, unspecified; R91.8 Other nonspecific abnormal finding of lung field; K59.00 Constipation, unspecified
CPT/HCPCS: 71260; 74177; Q9967

== ENCOUNTER 2024-05-13 11:16 | Outpatient (CLI) | payer MEDICARE, SELFPAY | END 2024-05-13 11:17 | disposition home or self-care (01) | PROVIDERS: PCP Internal Medicine; Visit Provider Internal Medicine | DX: Z12.2 Encounter for screening for malignant neoplasm of respiratory organs (principal); Z87.891 Personal history of nicotine dependence | CPT/HCPCS: 71271 ==

== ENCOUNTER 2024-12-12 00:41 | Day surgery (SDC) | payer MEDICARE, SELFPAY ==
--- OUTSIDE RECORDS SUMMARY | 2024-11-28 06:40 | XMS_ITS ---
Author Organization [facility] Address [address] [place], [place] [id number] Care Team Providers Care Model Maker [employer]astic Name Role Phone TATIANA RUTHERFORD Unavailable [phone] Jarvis Correia Unavailable Unavailable Allergies No Known Allergies REASON FOR VISIT *General care Medications Medication SIG (Take, Route, Frequency, Duration) Notes Start Date End Date Status 120 ACTUAT budesonide 0.16 MG/ACTUAT / formoterol fumarate 0.0045 MG/ACTUAT Metered Dose Inhaler [Symbicort] INTRAPULMONARY 120 ACTUAT budesonide 0.16 MG/ACTUAT / formoterol fumarate 0.0045 MG/ACTUAT Metered Dose Inhaler [Symbicort]Original [id number] ACTUAT budesonide 0.16 MG/ACTUAT / formoterol fumarate 0.0045 MG/ACTUAT Metered 3 Active aspirin 81 MG Oral Tablet ORAL aspirin 81 MG Oral TabletOriginal Medicationaspirin 81 MG Oral Tablet *Reorder from [facility] for eRx and Interaction Alerts* 3 Active Pravastatin Sodium 10 MG Oral Tablet ORAL pravastatin sodium 10 MG Oral TabletOriginal Medicationpravastatin sodium 10 MG Oral Tablet *Reorder from [facility] for eRx and Interaction Alerts* 3 Active carvedilol 25 MG Oral Tablet [Coreg] ORAL carvedilol 25 MG Oral Tablet [Coreg]Original Medicationcarvedilol 25 MG Oral Tablet [Coreg] *Reorder from [facility] for eRx and Interaction Alerts* 07/29/201 3 Active Vital Signs Height 71.00 in 11/28/2024 Height-cm 180.34 cm 11/28/2024 Encounters Encounter Location Date Provider Diagnosis [facility] [address] [facility] [address] [place], [place] [id number] 11/28/2024 TATIANA RUTHERFORD Onychomycosis B35.1 ; Pain in right toe(s) M79.674 ; Pain in left toe(s) M79.675 ; 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, bilateral legs I70.203 and Acquired keratoderma L85.1 Assessments Encounter Date Diagnosis (ICD Code) Assessment Notes Treatment Notes Treatment Clinical Notes Section Notes 11/28/2024 Onychomycosis (ICD-10 - B35.1) 11/28/2024 Pain in right toe(s) (ICD-10 - M79.674) 11/28/2024 Pain in left toe(s) (ICD-10 - M79.675) 11/28/2024 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, bilateral legs (ICD-10 - I70.203) 11/28/2024 Acquired keratoderma (ICD-10 - L85.1) 11/28/2024 Other Nails 1-5 Bilateral were debrided extensively with nail nippers and emery board, reducing length and girth to pink healthy tissue with any subungual debris and necrotic tissue removed All corns or calluses, as described in the note above, were cut and pared utilizing a #15 blade Plan Of Treatment Treatment Notes Assessment Notes Other Nails 1-5 Bilateral were debrided extensively with nail nippers and emery board, reducing length and girth to pink healthy tissue with any subungual debris and necrotic tissue removed All corns or calluses, as described in the note above, were cut and pared utilizing a #15 blade Next Appt Details Provider Name:TATIANA GODOY, 01/30/2025 11:20:00 AM, [address] [facility] [address], [place], [place], [id number], Progress Notes * ORESTES MCGILL LDOB:[birth year] (79 yo M)Acc No.[id number]:11/28/2024 Patient: ORESTES SALDIVAR Provider: Abraham Rutherford DPM :1945 A ge:79 Y S ex:Male Date:11/28/2024 Address:[address] [place], [facility] [id number] Subjective: * Chief Complaints: * 1 . *General care. * HPI: H PI: General care P atient presents to the office for at risk foot care. Patient states that their nails are thickened, elongated and painful. Patient states that it is aggravated by shoe gear. Onset is gradual. Patient denies being diabetic., Patient denies taking prescription blood thinners but does take a daily aspirin., Date last seen by Dr. Correia was June 2024., Initials JMR. * ROS: G eneral / Constitutional: Patient denies c hange in appetite, fatigue, chills, fever.? C ardiovascular: Chest pain d enies. N eurologic: Loss of use of extremity d enies. * Medical History: H ypertension, Pneumonia. * Family History: F ather: PRN - Father: :: Heart disease,,known absent . M other: PRN - Mother: :: Diabetes,,known absent , :: Heart Disease < 55 yrs,,known absent . B rother: SIB - Brother: . * Social History: M igrated Social History: M igrated Social History: Smoking Status : Current every day smoker , History of tobacco use : Current every day smoker , Alcohol intake :. * Medications: T aking Pravastatin Sodium 10 MG Oral Tablet ORAL , Notes to Pharmacist: pravastatin sodium 10 MG Oral TabletOriginal Medicationpravastatin sodium 10 MG Oral Tablet *Reorder from [facility] for eRx and Interaction Alerts*, Taking 120 ACTUAT budesonide 0.16 MG/ACTUAT / formoterol fumarate 0.0045 MG/ACTUAT Metered Dose Inhaler [Symbicort] INTRAPULMONARY , Notes to Pharmacist: 120 ACTUAT budesonide 0.16 MG/ACTUAT / formoterol fumarate 0.0045 MG/ACTUAT Metered Dose Inhaler [Symbicort]Original [id number] ACTUAT budesonide 0.16 MG/ACTUAT / formoterol fumarate 0.0045 MG/ACTUAT Metered, Taking aspirin 81 MG Oral Tablet ORAL , Notes to Pharmacist: aspirin 81 MG Oral TabletOriginal Medicationaspirin 81 MG Oral Tablet *[facility]*, Taking carvedilol 25 MG Oral Tablet [Coreg] ORAL , Notes to Pharmacist: carvedilol 25 MG Oral Tablet [Coreg]Original Medicationcarvedilol 25 MG Oral Tablet [Coreg] *[facility] and Interaction Alerts*, Medication List reviewed and reconciled with the patient * Allergies: N .K.D.A. Objective: * Vitals: H t: 71.00 in, Ht-cm: 180.34 cm. * Examination: P hysical Examination: Gen: T he patient is awake, alert, well developed, well groomed and well nourished. They are in no apparent distress. . Musc: F oot structure is normal bilateral. Muscle strength is 5/5 to all joints bilaterally. There is no pain on palpation. . Derm: T here is absent hair growth on bilateral feet. There are pigmentary changes of bilateral foot. The skin color is red. The skin texture is thin and shiny. Distal cooling noted in bilateral feet. Nails are thick, discolored, and dystrophic with subungual debris. They are painful to palpation. , Hyperkeratotic lesions noted: sub 2nd MTH and plantar heel left. Neuro: G rossly intact to light touch bilateral . Vasc: P osterior tibialis pulse 0/4 bilaterally. Dorsalis pedis pulse 0/4 bilaterally. No edema noted. Capillary fill time > 3 seconds to all digits. . Assessment: * Assessment: 1. O nychomycosis - B35.1 (Primary) 2 . P ain in right toe(s) - M79.674? 3. P ain in left toe(s) - M79.675 4 . U nspecified atherosclerosis of solomon arteries of extremities, bilateral legs - I70.203 5 . A cquired keratoderma - L85.1 Plan: * Treatment: * Immunizations: Immunization record has been reviewed and updated. * Preventive Medicine: Counseling: S moking: Patient counselled on the dangers of tobacco use and urged to quit. 0 11/28/2024 Screenings: F all risk screening Fall Risk Assessment: N o falls in the past year * Billing Information: * Visit Code: * Procedure Codes: * Electronic signature of TATIANA SANJEEV , GIDEON on 12/12/2024 at 12:43 AM CDT Sign off status: Pending * Provider: Abraham Rutherford DPM Date: 0 11/28/2024 Generated for Cherri veloz/Yfn/Sera on: 1 12:43 AM CDT History and Physical Notes * HPI (History of Present Illness) Category Sub-Category Detail Notes Category Not es HPI General care Patient presents to the office for at risk foot care. Patient states that their nails are thickened, elongated and painful. Patient states that it is aggravated by shoe gear. Onset is gradual. Patient denies being diabetic., Patient denies taking prescription blood thinners but does take a daily aspirin., Date last seen by Dr. Correia was June 2024., Initials JMR Examination Category Sub-Category Detail Notes Category Not es Physical Examination Gen: The patient is awake, alert, well developed, well groomed and well nourished. They are in no apparent distress. Vasc: Posterior tibialis p ulse 0/4 bilaterally. Dorsalis pedis pulse 0/4 bilaterally. No edema noted. Capillary fill time > 3 seconds to all digits. Neuro: Grossly intact to li ght touch bilateral Musc: Foot structure is no rmal bilateral. Muscle strength is 5/5 to all joints bilaterally. There is no pain on palpation. Derm: There is absent hair growth on bilateral feet. There are pigmentary changes of bilateral foot. The skin color is red. The skin texture is thin and shiny. Distal cooling noted in bilateral feet. Nails are thick, discolored, and dystrophic with subungual debris. They are painful to palpation. , Hyperkeratotic lesions noted: sub 2nd MTH and plantar heel left
[2024-11-29 10:14] VITALS: BMI 26.1
--- OUTSIDE RECORDS SUMMARY | 2024-12-12 00:44 | XMS_ITS | Patient Health Record ---
Author Organization [facility] Address [address] [place], [place] [address] Care Team Providers Care Civil Rights Investigator Name Role Phone TATIANA PACE Unavailable [phone] Jarvis Correia Unavailable Unavailable Allergies No Known Allergies Reason For Referral No Information Medications Medication SIG (Take, Route, Frequency, Duration) Notes Start Date End Date Status 120 ACTUAT budesonide 0.16 MG/ACTUAT / formoterol fumarate 0.0045 MG/ACTUAT Metered Dose Inhaler [Symbicort] INTRAPULMONARY 120 ACTUAT budesonide 0.16 MG/ACTUAT / formoterol fumarate 0.0045 MG/ACTUAT Metered Dose Inhaler [Symbicort]Original [id number] ACTUAT budesonide 0.16 MG/ACTUAT / formoterol fumarate 0.0045 MG/ACTUAT Metered 3 Active aspirin 81 MG Oral Tablet ORAL aspirin 81 MG Oral TabletOriginal Medicationaspirin 81 MG Oral Tablet *Reorder from Medivance for eRx and Interaction Alerts* 3 Active Pravastatin Sodium 10 MG Oral Tablet ORAL pravastatin sodium 10 MG Oral TabletOriginal Medicationpravastatin sodium 10 MG Oral Tablet *Reorder from Medivance for eRx and Interaction Alerts* 3 Active carvedilol 25 MG Oral Tablet [Coreg] ORAL carvedilol 25 MG Oral Tablet [Coreg]Original Medicationcarvedilol 25 MG Oral Tablet [Coreg] *Reorder from Medivance for eRx and Interaction Alerts* 3 Active Immunizations Vaccine Route Administration Date Status Comme nts Pneumococcal conjugate PCV 13 Unknown 04/10/2017 Admini stered Influenza, high-dose seasona l, quadrivalent, preservative free >65 yrs Unknown 01/01/2020 Administered Influenza, high dose seasonal Unknown 01/18/2018 Admini stered Vital Signs Height-cm 180.34 cm 11/28/2024 Weight-kg 83.92 kg 09/19/2024 Height 71.00 in 11/28/2024 Weight 185 lbs 09/19/2024 BMI 25.8 kg/m2 09/19/2024 Encounters Encounter Location Date Provider Diagnosis [facility] [address] [place] [id number] 11/28/2024 TATIANA SANJEEV Onychomycosis B35.1 ; Pain in right toe(s) M79.674 ; Pain in left toe(s) M79.675 ; Unspecified atherosclerosis of [place] arteries of extremities, bilateral legs I70.203 and Acquired keratoderma L85.1 [facility] [place] [address] [place] [id number] 01/04/2024 TATIANA SANJEEV Onychomycosis B35.1 ; Pain in right toe(s) M79.674 ; Pain in left toe(s) M79.675 ; Unspecified atherosclerosis of [place] arteries of extremities, bilateral legs I70.203 and Acquired keratoderma L85.1 [facility] [place] [address] [place] [id number] 03/07/2024 TATIANA SANJEEV Onychomycosis B35.1 ; Pain in right toe(s) M79.674 ; Pain in left toe(s) M79.675 ; Unspecified atherosclerosis of [place] arteries of extremities, bilateral legs I70.203 and Acquired keratoderma L85.1 [facility] [place] [address] [place] [id number] 05/09/2024 TATIANA BIBIANATENWALT Onychomycosis B35.1 ; Pain in right toe(s) M79.674 ; Pain in left toe(s) M79.675 ; Unspecified atherosclerosis of [place] arteries of extremities, bilateral legs I70.203 and Acquired keratoderma L85.1 [facility] [address] [place], [place] [id number] 07/18/2024 TATIANA PACE Onychomycosis B35.1 ; Pain in right toe(s) M79.674 ; Pain in left toe(s) M79.675 ; Unspecified atherosclerosis of [place] arteries of extremities, bilateral legs I70.203 and Acquired keratoderma L85.1 [facility] [address] [place], [place] [id number] 09/19/2024 TATIANA PACE Onychomycosis B35.1 ; Pain in right toe(s) M79.674 ; Pain in left toe(s) M79.675 ; Unspecified atherosclerosis of [place] arteries of extremities, bilateral legs I70.203 and Acquired keratoderma L85.1 Assessments Encounter Date Diagnosis (ICD Code) Assessment Notes Treatment Notes Treatment Clinical Notes Section Notes 01/04/2024 Onychomycosis (ICD-10 - B35.1) 03/07/2024 Onychomycosis (ICD-10 - B35.1) 05/09/2024 Onychomycosis (ICD-10 - B35.1) 07/18/2024 Onychomycosis (ICD-10 - B35.1) 09/19/2024 Onychomycosis (ICD-10 - B35.1) 11/28/2024 Onychomycosis (ICD-10 - B35.1) 11/28/2024 Pain in right toe(s) (ICD-10 - M79.674) 09/19/2024 Pain in right toe(s) (ICD-10 - M79.674) 07/18/2024 Pain in right toe(s) (ICD-10 - M79.674) 05/09/2024 Pain in right toe(s) (ICD-10 - M79.674) 03/07/2024 Pain in right toe(s) (ICD-10 - M79.674) 01/04/2024 Pain in right toe(s) (ICD-10 - M79.674) 01/04/2024 Pain in left toe(s) (ICD-10 - M79.675) 03/07/2024 Pain in left toe(s) (ICD-10 - M79.675) 05/09/2024 Pain in left toe(s) (ICD-10 - M79.675) 07/18/2024 Pain in left toe(s) (ICD-10 - M79.675) 09/19/2024 Pain in left toe(s) (ICD-10 - M79.675) 11/28/2024 Pain in left toe(s) (ICD-10 - M79.675) 07/18/2024 Unspecified atherosclerosis of [place] arteries of extremities, bilateral legs (ICD-10 - I70.203) 09/19/2024 Unspecified atherosclerosis of [place] arteries of extremities, bilateral legs (ICD-10 - I70.203) 03/07/2024 Unspecified atherosclerosis of [place] arteries of extremities, bilateral legs (ICD-10 - I70.203) 05/09/2024 Unspecified atherosclerosis of [place] arteries of extremities, bilateral legs (ICD-10 - I70.203) 01/04/2024 Unspecified atherosclerosis of [place] arteries of extremities, bilateral legs (ICD-10 - I70.203) 11/28/2024 Unspecified atherosclerosis of [place] arteries of extremities, bilateral legs (ICD-10 - I70.203) 11/28/2024 Acquired keratoderma (ICD-10 - L85.1) 03/07/2024 Acquired keratoderma (ICD-10 - L85.1) 01/04/2024 Acquired keratoderma (ICD-10 - L85.1) 09/19/2024 Acquired keratoderma (ICD-10 - L85.1) 07/18/2024 Acquired keratoderma (ICD-10 - L85.1) 05/09/2024 Acquired keratoderma (ICD-10 - L85.1) 11/28/2024 Other Nails 1-5 Bilateral were debrided extensively with nail nippers and emery board, reducing length and girth to pink healthy tissue with any subungual debris and necrotic tissue removed All corns or calluses, as described in the note above, were cut and pared utilizing a #15 blade 01/04/2024 Other Nails 1-5 Bilateral were debrided extensively with nail nippers and emery board, reducing length and girth to pink healthy tissue with any subungual debris and necrotic tissue removed All corns or calluses, as described in the note above, were cut and pared utilizing a #15 blade 03/07/2024 Other Nails 1-5 Bilateral were debrided extensively with nail nippers and emery board, reducing length and girth to pink healthy tissue with any subungual debris and necrotic tissue removed All corns or calluses, as described in the note above, were cut and pared utilizing a #15 blade 05/09/2024 Other Nails 1-5 Bilateral were debrided extensively with nail nippers and emery board, reducing length and girth to pink healthy tissue with any subungual debris and necrotic tissue removed All corns or calluses, as described in the note above, were cut and pared utilizing a #15 blade 07/18/2024 Other Nails 1-5 Bilateral were debrided extensively with nail nippers and emery board, reducing length and girth to pink healthy tissue with any subungual debris and necrotic tissue removed All corns or calluses, as described in the note above, were cut and pared utilizing a #15 blade 09/19/2024 Other Nails 1-5 Bilateral were debrided extensively with nail nippers and emery board, reducing length and girth to pink healthy tissue with any subungual debris and necrotic tissue removed All corns or calluses, as described in the note above, were cut and pared utilizing a #15 blade Plan Of Treatment Next Appt Details Provider Name:TATIANA GODOY, 01/30/2025 11:20:00 AM, [address], [facility], [place], [place], [id number], Insurance Providers Payer Name Payer Address Payer Phone Subscriber Number Group Number Insured Name Patient Relationship to Insured Coverage Start Date Coverage End Date Medicare Part B [place] [address] [place] [address] [id number] ORESTES MCGILL Self - patient is the insured [facility] ([facility]) ATTN CLAIMS [address] [place] [address] [id number] ORESTES MCGILL Self - patient is the insured Medical (General) History Medical History History ICD Code hypertension Pneumonia
--- OUTSIDE RECORDS SUMMARY | 2024-12-12 00:44 | XMS_ITS | Clinical Summary ---
Author Organization [facility] Address [address] [place] [address] Care Team Providers Care Office Secretary Name Role Phone Jarvis Correia MD Primary Care Provider [phone] Allergies No known active allergies Medications bimatoprost (LUMIGAN) 0.01 % ophthalmic drops 1 drop nightly Active dorzolamide (TRUSOPT) 2 % ophthalmic solution 1 drop 3 (three) times a day Active docosahexaenoic acid/epa (FISH OIL ORAL) Take by mouth Active atorvastatin (LIPITOR) 40 mg tablet Take 1 tablet (40 mg total) by mouth daily Active mometasone-form oterol (DULERA 100) 100-5 mcg/actuation inhaler Inhale 2 puffs 2 (two) times a day Rinse mouth with water after use. Do not swallow. Active aspirin 81 mg enteric coated tablet Take 1 tablet (81 mg total) by mouth daily Active fluticasone furoate-vilante roL (BREO ELLIPTA) 100-25 mcg/dose diskus inhaler Inhale 1 puff daily Rinse mouth with water after use. Do not swallow. Active budesonide-form oteroL (SYMBICORT) 160-4.5 mcg/actuation inhaler Inhale 2 puffs 2 (two) times a day Rinse mouth with water after use. Do not swallow. Active metFORMIN (GLUCOPHAGE) 500 mg tablet Take 1 tablet (500 mg total) by mouth 2 (two) times a day 10/31/2022 Active fluticasone-ume clidin-vilanter (Trelegy Ellipta) 200-62.5-25 mcg inhaler Inhale 1 puff daily Active Active Problems Problem Noted Date Diagnosed Date Tobacco abuse 01/18/2021 Assessment & Plan (02/15/2024 2:29 PM GAUGER DELIVERY): Impression: Patient is a current everyday smoker. Plan: Discussed with the patient greater than 3 minutes about the importance of smoking cessation in the health benefits to the cardiovascular health. Different treatment modalities discussed with the patient. Patient is currently not interested in quitting at this time. Assessment & Plan (01/31/2022 10:39 AM GAUGER DELIVERY): Patient with history of tobacco abuse who is a current everyday 1/2 pack per day smoker with a significant 20+ pack-year smoking history. I had a greater than 3 minute discussion with the patient on the importance of smoking cessation and the negative affects on their cardiovascular health. The patient is currently not interested in quitting. Assessment & Plan (01/18/2021 8:02 AM GAUGER DELIVERY): Patient is a current everyday smoker. More than 3 minutes was discussed about smoking cessation and the benefits of smoking cessation on his overall cardiovascular health. He does not have any interest in quitting at this time. Stenosis of left subclavian artery 06/17/2020 Assessment & Plan (02/15/2024 2:28 PM GAUGER DELIVERY): Impression: Patient has stable asymptomatic left subclavian artery stenosis with no worsening progression seen on upper extremity arterial Doppler. Plan: Continue ongoing risk factor modifications. -Recommend patient follow-up in 1 year for re-evaluation with repeat upper extremity arterial Doppler. Encouraged patient make a sooner appointment if he develops any symptoms of claudication to the left upper extremity, numbness or tingling to the left upper extremity/hand, or open ulcerations. Assessment & Plan (02/01/2023 11:38 AM GAUGER DELIVERY): Impression: Patient has stable asymptomatic left subclavian artery stenosis with no worsening progression seen on upper extremity arterial Doppler. Plan: No surgical interventions indicated at this time. -continue ongoing risk factor modifications. -patient to follow-up in 1 year for re-evaluation with repeat upper extremity arterial Doppler. Assessment & Plan (01/31/2022 10:38 AM GAUGER DELIVERY): Impression: Stable asymptomatic left subclavian artery stenosis with no worsening progression on upper extremity arterial Doppler surveillance. Plan: No surgical intervention currently needed. Recommend ongoing risk factor modifications and follow-up in 1 year for re-evaluation with repeat upper extremity arterial Doppler surveillance. Assessment & Plan (01/21/2021 10:13 AM GAUGER DELIVERY): Patient has left subclavian artery stenosis with no significant ischemic claudication symptoms when using his arm. He is not having any lightheadedness or dizziness at this time. I will have him follow up in 1 year with a repeat upper extremity Doppler. He can call sooner if there are any questions or concerns or if he starts having claudication symptoms. Assessment & Plan (06/17/2020 11:07 PM CDT): Impression: Stable nondisabling claudication left upper extremity. No open ulcerations or rest pain. Plan: Recommend ongoing risk factor modifications and follow-up in 6 months for re-evaluation and repeat upper extremity arterial Doppler surveillance. Essential hypertension 03/23/2020 Assessment & Plan (02/15/2024 2:27 PM GAUGER DELIVERY): Impression: Chronic and stable. Plan: Continue blood pressure management as per PCP. Assessment & Plan (02/01/2023 11:38 AM GAUGER DELIVERY): Impression: Chronic stable. Plan: Continue blood pressure monitoring as per PCP. Assessment & Plan (01/31/2022 10:39 AM GAUGER DELIVERY): Impression: Stable chronic hypertension. Plan: Medications reviewed and recommend continuing daily antihypertensive regimen as directed by patient's primary care physician. Assessment & Plan (01/18/2021 8:01 AM GAUGER DELIVERY): Followed by his PCP and controlled on his current medications. Assessment & Plan (06/17/2020 11:06 PM CDT): Impression: Stable chronic hypertension. Plan: Medications reviewed and recommend continuing daily antihypertensive regimen as directed by patient's primary care physician. Assessment & Plan (03/23/2020 11:30 AM GAUGER DELIVERY): Followed by his PCP and controlled at this time. Dyslipidemia 03/23/2020 Assessment & Plan (02/15/2024 2:27 PM GAUGER DELIVERY): Impression: Chronic and stable. Plan: Continue atorvastatin. Assessment & Plan (02/01/2023 11:38 AM GAUGER DELIVERY): Impression: Chronic stable. Plan: Continue atorvastatin. Assessment & Plan (01/31/2022 10:39 AM GAUGER DELIVERY): Hyperlipidemia: Stable chronic hyperlipidemia. Medications reviewed and I recommend continuing daily statin regimen as directed by patient's primary care physician. Assessment & Plan (01/18/2021 8:01 AM GAUGER DELIVERY): Followed by his PCP and on a statin. Assessment & Plan (06/17/2020 11:06 PM CDT): Impression: Stable chronic hyperlipidemia. Plan: Medications reviewed I recommend continuing daily statin regimen as directed by patient's primary care physician. Assessment & Plan (03/23/2020 11:30 AM GAUGER DELIVERY): Patient is on a statin at this time. Immunizations Immunization Administration Dates Next Due Influenza, Quadrivalent, Hig h Dose, Preservative Free, Intrr 01/01/2020 Influenza, Trivalent, High D ose, Split, Preservative Free, Intramuscular 01/18/2018 Pneumococcal Conjugate PCV 13 04/10/2017 Surgical History Surgery Date Site/Laterality Comments FOOT SURGERY Bilateral MULTIPLE TOOTH EXTRACTIONS COLECTOMY TONSILECTOMY, ADENOIDECTOMY, BILATERAL MYRINGOTOMY AND TUBES Medical History Medical History Date Comments CAD (coronary artery disease) COPD (chronic obstructive pulmonary disease) Hearing loss Hyperlipidemia Family History Medical History Relation Name Comments Stroke Brother Heart disease Father Diabetes Mother Heart disease Mother Relation Name Status Comments Brother Alive Father Mother Social History Tobacco Use Types Packs/Day Years Used Date Smoking Tobacco: Every Day Cigarettes Smokeless Tobacco: Never Sex and Gender Information Value Date Recorded Sex Assigned at Not on file Legal Sex Male 2:28 AM GAUGER DELIVERY Gender Identity Not on file Sexual Orientation Not on file Obstetrics History Last Filed Vital Signs Vital Sign Reading Time Taken Comments Blood Pressure 150/77 02/14/2024 9:19 AM GAUGER DELIVERY Pulse 79 02/14/2024 9:19 AM GAUGER DELIVERY Temperature - - Respiratory Rate - - Oxygen Saturation 94% 02/14/2024 9:19 AM GAUGER DELIVERY Inhaled Oxygen Concentration - - Weight 86.2 kg (190 lb) 02/14/2024 9:19 AM GAUGER DELIVERY Height 177.8 cm (5' 10) 02/14/2024 9:19 AM GAUGER DELIVERY Body Mass Index 27.26 02/14/2024 9:19 AM GAUGER DELIVERY Plan of Treatment Health Maintenance Due Date Last Done Comments Depression Screening 1945 Fall Risk Assessment 1945 DTaP/Tdap/Td Vaccine (1 - Tdap) 1954 Hepatitis B Screening 1961 Zoster Vaccine (1 of 2) 1993 Well Visit 65+ 01/28/2008 Pneumococcal vaccine 65+ (2 of 2 - PPSV23, PCV20, or PCV21) 06/05/2017 04/10/2017 Influenza Vaccine (#1) 2024 01/01/2020, 2017 Insurance MEDICARE MEDICARE [facility] MEDICARE SUPPLEMENT Member Subscriber Plan / Payer ( fective 2020-Present) Name:Elkin Zhu Relation to Subscriber:Self Name:Elkin Zhu Payer ID:[id number] Group ID:[id number] Type:COMMERCIAL Address: [facility] [id number] [place] [id number] Care Teams Office Secretary Relationship Specialty Start Date End Date Jarvis Correia MD PCP - General Internal Medicine 03/16/20
--- OUTSIDE RECORDS SUMMARY | 2024-12-12 00:44 | XMS_ITS | Clinical Summary ---
Author Organization [facility] Address [facility] [place] [address] Care Team Providers Care Word Processor Technician Name Role Phone Jarvis Correia MD Primary Care Provider [phone] Karel Glaser MD Unavailable [phone] Allergies No known active allergies Medications bimatoprost 0.01 % Solution Place 1 drop into both eyes nightly at bedtime. Active budesonide-form oterol 160-4.5 MCG/ACT inhaler Inhale 2 puffs into the lungs 2 (two) times daily. Active rivaroxaban 20 MG Tab tablet Take 20 mg by mouth daily. Take with food Active dorzolamide 2 % ophthalmic solution 07/10/2018 Active pravastatin 40 MG tablet Take 40 mg by mouth nightly at bedtime. Active aspirin EC (ASPIRIN EC) 81 MG tablet Take 81 mg by mouth daily. Active albuterol sulfate HFA (PROAIR HFA) 108 (90 Base) MCG/ACT inhaler Inhale 2 puffs into the lungs every 6 (six) hours as needed for Wheezing. Active sodium chloride 5 % ophthalmic solution 1 drop as needed. Active Active Problems Problem Noted Date Diagnosed Date Shortness of breath 09/04/2018 PNA (pneumonia) 06/08/2018 UTI (urinary tract infection) 06/08/2018 Sepsis ([facility]) 06/08/2018 Acute respiratory failure with hypoxia ([facility]) 06/08/2018 Pulmonary emphysema ([facility]) 06/08/2018 DVT (deep venous thrombosis) ([facility]) 0 06/08/2018 Glaucoma 06/08/2018 Family History Medical History Relation Comments CHF Mother Relation Status Comments Mother Social History Tobacco Use Types Packs/Day Years Used Date Smoking Tobacco: Every Day Cigarettes Smokeless Tobacco: Never Comments:smokes around 6 cig arettes per day Alcohol Use Standard Drinks/Week Comments No 0 (1 standard drink = 0.6 oz pur e alcohol) AUDIT-C Answer Date Recorded Frequency of Alcohol Consumption Never 06/08/2018 Average Number of Drinks Not on file 019 Frequency of Binge Drinking Not on file 05/12 Sex and Gender Information Value Date Recorded Sex Assigned at Not on file Legal Sex Male 2:27 AM CDT Gender Identity Not on file Sexual Orientation Not on file Last Filed Vital Signs Vital Sign Reading Time Taken Comments Blood Pressure 118/58 09/04/2018 12:25 PM CDT Pulse 76 09/04/2018 12:25 PM CDT Temperature 36.3 C (97.3 F) 06/14/2018 7:51 AM CDT Respiratory Rate 20 09/04/2018 12:25 PM CDT Oxygen Saturation 94% 06/14/2018 7:51 AM CDT Inhaled Oxygen Concentration - - Weight 91.7 kg (202 lb 3.2 oz) 09/04/2018 12:25 PM CDT Height 178.4 cm (5' 10.25) 09/04/2018 12:25 PM CDT Body Mass Index 28.81 09/04/2018 12:25 PM CDT Plan of Treatment Health Maintenance Due Date Last Done Comments DTaP, Tdap and Td Vaccines ( 1 - Tdap) 1962 Zoster Vaccines (1 of 2) 1993 Annual Medicare Wellness Visit 01/28/2008 Pneumococcal Vaccine: 50+ Ye ars (2 of 2 - PPSV23) 06/05/2017 04/10/2017 RSV Immunization or 60+ Years (1 - 1-dose 75+ series) 2018 COVID-19 Vaccine ( - 2023-2 5 season) 2024 Meningococcal B Vaccine Aged Out No l onger eligible based on patient's age to complete this topic Meningococcal Vaccine Aged Out No ramin kim eligible based on patient's age to complete this topic RSV Immunizations Under 20 Months Aged Out No longer eligible based on patient's age to complete this topic Insurance MEDICARE MEDICARE Advance Directives * Full Code (Latest Code Status on File) Date Activated Date Inactivated Comments 06/08/2018 5:30 AM 06/14/2018 4:32 PM Care Teams Word Processor Technician Relationship Specialty Start Date End Date Jarvis Correia MD PCP - General INTERNAL MEDICINE 06/08/18 Karel Glaser MD Consulting Physician INTERVENTIONAL CARDIOLOGY 09/04/18
[2024-12-12 07:58] VITALS: BP 141/82; PULSE 95; RESP 18; TEMP 36; O2SAT 97; BMI 25.4
[2024-12-12] MEDS: LACTATED RINGERS 1,000 ML 150 ML IV CONT (08:08)
--- NOTE | 2024-12-12 09:08 | PM.IMHP ---
H&P: HPI History of Present Illness Date/Time: 12/12/24 09:08 Chief Complaint: History of colon cancer Narrative: the patient had a history of partial colonic resection 17 years ago. He has been undergoing periodic colonoscopies, the last 1 was about 5 years ago. Now referred for colonoscopy. Review of Systems Review of Systems: All systems reviewed & are unremarkable except as noted in HPI and below PMFSH Past Medical History Medical History Rhus dermatitis Rash Trigger thumb of right hand Encounter for routine adult health examination with abnormal findings BMI 26.0-26.9,adult Unintentional weight loss Pre-diabetes Urinary tract infection with hematuria Pneumonia due to infectious organism Cataract of left eye Hematuria, microscopic Chronic hoarseness Impacted cerumen Tobacco abuse Leukoplakia of larynx Prostate cancer screening Elevated glucose ASHD (arteriosclerotic heart disease) Vitamin D deficiency COPD exacerbation Stenosis of left subclavian artery Abnormal ankle brachial index (ASHANTI) Constipation Encounter for routine adult health examination without abnormal findings BMI 28.0-28.9,adult Bruit BMI 27.0-27.9,adult Hearing loss Thalassemia Hx of colonic polyps Hx pulmonary embolism Glaucoma 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 Encounter for Medicare annual wellness exam BPH (benign prostatic hyperplasia) CAD (coronary artery disease) COPD (chronic obstructive pulmonary disease) Benign essential hypertension Mixed hyperlipidemia Surgical History Surgical History Status post cataract extraction Family History Family History Father Family history of congestive heart failure Patient's father is Mother Acute myocardial infarction Family history of cardiac disorder Family history of diabetes mellitus in first degree relative Family history of heart disease in male family member before age 55 Diabetes mellitus Family history of cardiovascular disease Sibling Family history of diabetes mellitus in first degree relative Other Asthma Family history of allergic disorder Family history of coronary artery disease Social History Social History Smoking packs per day: 0.25 Smoking cigarettes per day: 5.0 Years smoked: 61 Smoking pack-years: 15.25 Smoking status: Current every day smoker Tobacco type: cigarettes Alcohol intake: former Substance use: never Substance use type: does not use Do You Feel Safe in your Home?: Yes Lack of Transportation: No Lack of Food: Never True Current Housing: I Have Housing Concerned About Future Housing: No Difficulty Paying Gas/Electric Bills: No Difficulty Paying for Meds: No Currently Unemployed: No Education: Trade/Vocational Certificate Difficulty w/ Childcare or Family Care: No Living arrangements: with family Occupation/Education: retired Gender identity (if verbalized by the patient): Male Sexual Orientation (if Verbalized by the Patient): Straight or Heterosexual Spiritual care concerns: No Meds Home Medications and Allergies Home Medications ?Medication ?Instructions ?Recorded ?Confirmed ?Type bimatoprost 0.01 % eye drops 1 drop ophthalmic (eye) DAILY 01/28/19 12/12/24 History (Lumigan) dorzolamide 2 % eye drops 1 drop ophthalmic (eye) BID 01/28/19 12/12/24 History aspirin 81 mg tablet,delayed 81 mg PO Q12H 05/27/19 12/12/24 History release (Adult Low Dose Aspirin) fluticasone fur. 200 mcg-umeclid 1 inh inhalation DAILY 02/15/22 12/12/24 History 62.5 mcg-vilant 25 mcg inhalat.powder (Trelegy Ellipta) metformin 500 mg tablet 500 mg PO BID #180 tabs 10/31/22 12/12/24 Rx atorvastatin 40 mg tablet See Rx Instructions .Route 03/11/24 12/12/24 Rx .COMPLEX #90 tabs cholecalciferol (vitamin D3) 50 100 mcg PO DAILY 05/07/24 12/12/24 History mcg (2,000 unit) capsule Allergies Allergy/AdvReac Type Severity Reaction Status Date / Time No Known Allergies Allergy Verified 12/12/24 07:57 Vital Signs Vital Signs - 24 hr 12/12/24 07:58 Temperature 96.8 F L Pulse Rate 95 Respiratory Rate 18 Blood Pressure 141/82 H Pulse Oximetry 97 Oxygen Delivery Room Air Exam Const: General: cooperative and healthy appearing Resp: Effort & Inspection: normal respiratory effort and able to speak in complete sentences Auscultation: clear to auscultation bilaterally Cardio: Rate: regular rate Rhythm: regular rhythm GI: Inspection: normal to inspection GI Palp: No No hepatosplenomegaly present Auscultation: normal bowel sounds Rectal Exam: deferred Skin: General skin exam: normal color Psych: Appearance: grossly normal Mental Status: mental status grossly normal Assessment and Plan Assessment and plan (1) History of colon cancer: Code(s): Z85.038 - Personal history of other malignant neoplasm of large intestine Status: Acute Assessment and Plan: The patient is deemed a good candidate for the procedure. Consent signed. Will proceed.
--- NOTE | 2024-12-12 09:12 | WPDANESEPPF ---
Anes - Initial Pre Proc Eval Procedure: Operation Date: 12/12/24 09:30 Proposed Procedures p Screening Colonoscopy - Royer Perez MD Date/Time: 12/12/24 09:12 Surgeon: Royer Perez MD Pre Op Diagnosis: Personal history of colon polyps, unspecified Patient Data Age: 79 Gender: M Height: 1.8 m Weight: 82.7 kg Last Vital Signs Temp 36.0 C L 12/12/24 07:58 Pulse 95 12/12/24 07:58 Resp 18 12/12/24 07:58 BP 141/82 H 12/12/24 07:58 Pulse Ox 97 12/12/24 07:58 O2 Del Method Room Air 12/12/24 07:58 Allergies Allergy/AdvReac Type Severity Reaction Status Date / Time No Known Allergies Allergy Verified 12/12/24 07:57 Home Medications ?Medication ?Instructions ?Recorded ?Confirmed ?Type bimatoprost 0.01 % eye drops 1 drop ophthalmic (eye) DAILY 01/28/19 12/12/24 History (Lumigan) dorzolamide 2 % eye drops 1 drop ophthalmic (eye) BID 01/28/19 12/12/24 History aspirin 81 mg tablet,delayed 81 mg PO Q12H 05/27/19 12/12/24 History release (Adult Low Dose Aspirin) fluticasone fur. 200 mcg-umeclid 1 inh inhalation DAILY 02/15/22 12/12/24 History 62.5 mcg-vilant 25 mcg inhalat.powder (Trelegy Ellipta) metformin 500 mg tablet 500 mg PO BID #180 tabs 10/31/22 12/12/24 Rx atorvastatin 40 mg tablet See Rx Instructions .Route 03/11/24 12/12/24 Rx .COMPLEX #90 tabs cholecalciferol (vitamin D3) 50 100 mcg PO DAILY 05/07/24 12/12/24 History mcg (2,000 unit) capsule Laboratory Tests 12/12/24 08:04 POC Capillary Glucose 88 mg/dl (65-105) Patient hx anesthesia problems: none Family hx anesthesia problems: none Results Review: All pre-operative results and documents have been reviewed as part of the pre-operative evaluation. [facility] Past Medical History Medical History Rhus dermatitis Rash Trigger thumb of right hand Encounter for routine adult health examination with abnormal findings BMI 26.0-26.9,adult Unintentional weight loss Pre-diabetes Urinary tract infection with hematuria Pneumonia due to infectious organism Cataract of left eye Hematuria, microscopic Chronic hoarseness Impacted cerumen Tobacco abuse Leukoplakia of larynx Prostate cancer screening Elevated glucose ASHD (arteriosclerotic heart disease) Vitamin D deficiency COPD exacerbation Stenosis of left subclavian artery Abnormal ankle brachial index (ASHANTI) Constipation Encounter for routine adult health examination without abnormal findings BMI 28.0-28.9,adult Bruit BMI 27.0-27.9,adult Hearing loss Thalassemia Hx of colonic polyps Hx pulmonary embolism 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 Encounter for Medicare annual wellness exam BPH (benign prostatic hyperplasia) CAD (coronary artery disease) COPD (chronic obstructive pulmonary disease) Benign essential hypertension Mixed hyperlipidemia Surgical History Surgical History Status post cataract extraction Family History Family History Father Family history of congestive heart failure Patient's father is Mother Acute myocardial infarction Family history of cardiac disorder Family history of diabetes mellitus in first degree relative Family history of heart disease in male family member before age 55 Diabetes mellitus Family history of cardiovascular disease Sibling Family history of diabetes mellitus in first degree relative Other Asthma Family history of allergic disorder Family history of coronary artery disease Social History Social History Smoking packs per day: 0.25 Smoking cigarettes per day: 5.0 Years smoked: 61 Smoking pack-years: 15.25 Smoking status: Current every day smoker Tobacco type: cigarettes Alcohol intake: former Substance use: never Substance use type: does not use Do You Feel Safe in your Home?: Yes Lack of Transportation: No Lack of Food: Never True Current Housing: I Have Housing Concerned About Future Housing: No Difficulty Paying Gas/Electric Bills: No Difficulty Paying for Meds: No Currently Unemployed: No Education: Trade/Vocational Certificate Difficulty w/ Childcare or Family Care: No Living arrangements: with family Occupation/Education: retired Gender identity (if verbalized by the patient): Male Sexual Orientation (if Verbalized by the Patient): Straight or Heterosexual Spiritual care concerns: No Anes - Eval Final PreProcedure Day of Procedure 12/12/24 09:12 Patient weight: normal Heart: regular rate and rhythm Lungs: normal air movement Airway: Mallampati scale class II Neurological: alert and oriented Last oral intake: >/= 8 hours ASA classification: IV Emergent: no Anesthetic plan: proceed Anesthesia type and monitoring: general GIVS and standard monitoring Results Review: All pre-operative results and documents have been reviewed as part of the pre-operative evaluation. Informed Consent: The patient's anesthetic plan and its attendant risks and benefits were discussed with the patient/family/POA. Questions were solicited and answers provided to the satisfaction of the patient/family/POA.
--- NOTE | 2024-12-12 09:35 | S_PTH ---
PATIENT: Elkin Zhu LOC: [facility] U#:[id number] AGE/SX: 79/M ROOM: RE12/12/[address]: Royer Perez MD : 1945 BED: DIS: 12/12/2024 SPEC #: [id number] RECD: 12/12/24 10:03 STATUS: ANTHONY REQ #: [id number] SILVER: 12/12/24 09:[address]: Royer Perez DEPT: [facility] Surgical RECD BY: Dalila Sullivan MLT, ([facility]) ENTERED: 12/12/24 10:03 SP TYPE: Surgical OTHR DR: Jarvis Correia MD Tissues: A - Colon Polypectomy Procedures: Hematoxylin and Eosin Stain Gross and Microscopic Level 4
[2024-12-12 09:41] VITALS: BP 92/73; PULSE 96; RESP 15; O2SAT 97
[2024-12-12 09:51] VITALS: BP 92/71; PULSE 97; RESP 18; O2SAT 97
[2024-12-12 10:01] VITALS: BP 110/70; PULSE 96; RESP 18; O2SAT 97
== END 2024-12-12 10:08 | disposition home or self-care (01) ==
PROVIDERS: PCP Internal Medicine; Referring Provider Internal Medicine; Visit Provider Internal Medicine Gastroenterology
PROC: 0DJD8ZZ Inspection of Lower Intestinal Tract, Via Natural or Artificial Opening Endoscopic (ICD-10-PCS; CPT 45378; principal; 2024-12-12 09:30)
DX: Z12.11 Encounter for screening for malignant neoplasm of colon (principal); D12.0 Benign neoplasm of cecum; Z85.038 Personal history of other malignant neoplasm of large intestine; F17.210 Nicotine dependence, cigarettes, uncomplicated; Z79.84 Long term (current) use of oral hypoglycemic drugs
CPT/HCPCS: 45385; 82948; 88305; J2003; J2704; J7120